=== PATIENT | male | born 1940 | race Caucasian/White ===

== ENCOUNTER 2024-12-03 09:07 | Emergency (ER) | payer MEDICARE ==
[2024-12-03] VITALS (14 sets, daily range): BP systolic 142–178; BP diastolic 77–96
[~2024-12-03] VITALS: Ht 177.8 cm; Wt 83.9 kg
[2024-12-03] MEDS ORDERED: DIOVAN320 MG PO (09:22)
[2024-12-03] MEDS ORDERED: LOVASTATIN40 M1 PO (09:22)
[2024-12-03] MEDS ORDERED: ALLERGY RE50 MCG/ACT (09:23)
[2024-12-03] MEDS ORDERED: ASPIRINCHW 81MG PO (09:24)
[2024-12-03] MEDS ORDERED: PILOCARPINE5 MG PO (09:25)
[2024-12-03] MEDS ORDERED: MYRBETRIQ50 MG PO (09:25)
[2024-12-03] MEDS ORDERED: FLEXERIL5 M1 PO (11:40)
[2024-12-03] MEDS ORDERED: TRAMADOL HYDROC50 M1 PO (11:40)
== END 2024-12-03 12:31 | disposition home or self-care (01) ==
LOC: ED 09:07
DX: S16.1XXA Strain of muscle, fascia and tendon at neck level, initial encounter (principal); I10 Essential (primary) hypertension; E78.00 Pure hypercholesterolemia, unspecified; E04.1 Nontoxic single thyroid nodule; X58.XXXA Exposure to other specified factors, initial encounter